=== PATIENT | male | born 1955 | race Caucasian/White ===

== ENCOUNTER 2025-04-25 08:44 | Outpatient (REF) | payer OTHER, SELFPAY ==
--- NOTE | ~2025-04-25 | XR_ITS ---
EXAMINATION: XR LUMBOSACRAL SPINE CLINICAL INFORMATION: LOW BACK PAIN COMPARISON: None available. TECHNIQUE: AP and lateral views FINDINGS: Endplate sclerosis decreased intervertebral disc height and vacuum phenomenon and anterior marginal osteophyte formation at L3-4 and to a lesser extent L5-S1. No acute cortical disruption. Dextroconvex rotoscoliosis apex at L3, mild to moderate. No gross malalignment. No lytic or blastic lesions. Vascular calcifications, aorta and iliac arteries. Multilevel syndesmophyte formation and marginal osteophyte formation and lower thoracic spine. XR/XR lumbar spine 2-3V IMPRESSION: Multilevel spondylosis and dextroconvex rotoscoliosis apex at L3 without acute fracture or gross listhesis. Atherosclerosis disease. Electronically signed by: Liborio Schaefer MD 04/25/2025 09:22 AM EDT
--- OUTSIDE RECORDS SUMMARY | 2025-04-25 08:56 | XMS_ITS | Continuity of Care Document ---
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) MDM MODERATE MUST MEET 2 OUT OF 3 ELEMENTS: PROBLEMS, DATA OR RISK ELEMENT 1: PROBLEMS ADDRESSED 1 OR MORE CHRONIC ILLNESS WITH EXACERBATION OR 2 OR MORE STABLE CHRONIC ILLNESSES OR 1 UNDIAGNOSED NEW PROBLEM OR 1 ACUTE ILLNESS W/SYMPTOMS OR 1 ACUTE COMPLICATED INJURY ELEMENT 2: DATA MUST MEET 1 OF 3 CATEGORIES CATEGORY 1: REVIEW OF PRIOR EXTERNAL NOTES, REVIEW OF RESULTS, ORDERING OF EACH TEST, ASSESSMENT REQUIRING INDEPENDENT HISTORIAN OR CATEGORY 2: INDEPENDENT INTERPRETATION OF TESTS BY ANOTHER PHYSICIAN OR SPECIALIST OR CATEGORY 3: DISCUSSION OF MGT OR TEST INTERPRETATION W/EXTERNAL PHYSICIAN OR SPECIALIST ELEMENT 3: RISK RISK OF COMPLICATIONS AND/OR MORBIDITY OR MORTALITY OF PATIENT MANAGEMENT PROVIDER MUST THOROUGHLY DOCUMENT EACH ELEMENT THAT IS COVERED Not available 04/23/2025 12:29:54 Plan of Treatment Reminders Order Date Submit Date Provider Last Modified By Organization Details Last Modified Time Details Appointments FOLLOW UP 15 2024 12:00P M DR KHANNA Not available Not available Not available Lab PSA, serum or plasma 2024 025 [facility], [facility], [place], [address], 04/24/2025 15:54:46 Referral None recorded. Procedures None recorded. Surgeries None recorded. Imaging XR, lumbosacr al spine, 2 or 3 view 2024 025 [email or web address] [facility], [address] [place] [address], [id number], 04/23/2025 14:06:26 Medication Orders None recorded. Patient TargetsNo targets recorded. Patient Instructions Encounter Date Encounter Id Patient Instructions Last Modified By Organization Details Last Modified Time 04/23/2025 [id number] back care and preventing injuries: care instructions Not available 04/23/2025 12:29:14 getting back to normal after low back pain: care instructions Not available 04/23/2025 12:29:14 learning about relief for back pain Not available 04/23/2025 12:29:14 Reason for Referral None Reported. Problems Name Problem SNOMED Code Status Onset Date Resolution Date Notes Provider Name and Address Organization Details Recorded Time Degenerati on of lumbar interverte bral disc 43862099 Active 2020 Not Available [facility] 3 03:01:14 Chronic hiccup 366861482 Active 2021 Not Available [facility] 3 03:01:14 Steatotic liver disease 826820129 Active 2021 Not Available [facility] 3 03:01:14 Low back pain 127173638 Active 2021 Fran Khanna DO [address] [place] [address], [phone], [facility] 5 12:28:23 Essential hypertensi on 45547588 Active 2017 Not Available [facility] 3 03:01:14 Asthma 958711695 Active 2017 Not Available [facility] 3 03:01:15 Type 2 diabetes mellitus 50525689 Active 2017 Not Available [facility] 3 03:01:14 Eczema 70171885 Active 2017 Not Available [facility] 3 03:01:14 Intermitte nt claudicati on 33189991 Active 2022 Fran Khanna DO [address] [place] [address], [phone], [facility] 3 09:11:50 Calcific coronary arterioscl erosis 34402340 Active 2022 Fran Avila Adrianamic, DO [address] [place] [address], [phone], [facility] 3 17:00:39 Peripheral vascular disease 982581265 Active 2023 Fran Avila Adrianamic DO [address] [place] [address], [phone], [facility] 4 09:15:21 Type 2 diabetes mellitus without complicati on 967541077 Active 2023 Fran Avila Lamont, DO [address] [place] [address], [phone], [facility] 4 09:16:20 Bee sting-siena onofre anaphylaxi s 476989508 Active 2023 Fran Avila Lamont DO [address] [place] [address], [phone], [facility] 4 15:51:12 Cough 00629782 Active 2024 Fran Avila Lamont, DO [address] [place] [address], [phone], [facility] 5 15:15:02 Pneumoniti s 829668712 Active 2024 Fran Avila Lamont DO [address] [place] [address], [phone], [facility] 5 14:39:46 Problem Notes None recorded. Procedures Surgical History Date Name Laterality Status Provider Name and Address Organization Details Recorded Time 03/14/20 24 Colonoscopy completed Fran CastilloEleonora Khanna DO [address] [place] [address], [phone], [facility] 03/14/2024 16:24:12 06/04/20 13 Colonoscopy completed Emily Nicholson [facility] 07/13/2018 10:07:05 Imaging Results None recorded. Procedure Notes None recorded. Medical Equipment None Reported. Allergies Allergen ID Allergen Name Allergen Category Reaction Reaction Severity Criticality Documentation Date Start Date Code Code System Note Provider Name and Address Organization Details Recorded Time 604 clindamyc in Not available Not available Not available Not available 01/03/2018 2582 RxNorm Emily de la torre [place] [facility] 8 10:36:23 Medications Name Sig Start Date Stop Date Status Note LastModified by Organization Details LastModified Time losartan 50 mg tablet take 1 tablet by mouth once a day 07/13 completed Not Available Not Available Not Available prednisone 10 mg tablet PLEASE SEE ATTACHED FOR DETAILED DIRECTION S 02/18 completed Not Available Not Available Not Available doxycycline hyclate 100 mg capsule 03/16 completed Not Available Not Available Not Available atorvastati n 20 mg tablet TAKE 1 TABLET BY MOUTH EVERY DAY active Not Available Not Available No t Available azithromyci n 250 mg tablet TAKE 2 TABLETS BY MOUTH TODAY, THEN TAKE 1 TABLET DAILY FOR 4 DAYS DIRECTED active Not Available Not Available No t Available ofloxacin 0.3 % eye drops 11/08 completed Not Available Not Available Not Available benzonatate 200 mg capsule TAKE 1 CAPSULE BY MOUTH THREE TIMES A DAY NEEDED FOR COUGH FOR 1 WEEK 02/18 completed Not Available Not Available Not Available meloxicam 15 mg tablet TAKE 1 TABLET BY MOUTH EVERY DAY 2024 active Not Available Not Available Not Avai lable valsartan 80 mg tablet TAKE 1 TABLET BY MOUTH EVERY DAY 12/14 completed Not Available Not Available Not Available ciprofloxac in 500 mg tablet TAKE 1 TABLET BY MOUTH EVERY 12 HOURS FOR 7 DAYS active Not Available Not Available No t Available tramadol 50 mg tablet TAKE 1 TABLET BY MOUTH EVERY 4 TO 6 HOURS NEEDED 02/18 completed Not Available Not Available Not Available oxycodone-a cetaminophe n 5 mg-325 mg tablet 07/19 completed Not Available Not Available Not Available amoxicillin 875 mg tablet TAKE 1 TABLET BY MOUTH EVERY 12 HOURS FOR 10 DAYS 02/18 completed Not Available Not Available Not Available baclofen 10 mg tablet TAKE 1 TABLET BY MOUTH TWICE A DAY NEEDED 05/02 completed Not Available Not Available Not Available metformin 1,000 mg tablet TAKE 1 TABLET BY MOUTH TWICE A DAY active Not Available Not Available No t Available glimepiride 4 mg tablet TAKE 1 TABLET BY MOUTH EVERY DAY. NEEDS APPT FOR FURTHER REFILLS. CALL OFFICE active Not Available Not Available No t Available mupirocin 2 % topical ointment APPLY TO AFFECTED AREA TWICE A DAY FOR 7 DAYS 04/26 completed Not Available Not Available Not Available epinephrine 0.3 mg/0.3 mL injection, auto-inject or TAKE 1 AUTO BY INJECTION ROUTE NEEDED FOR 1 DAY. active Not Available Not Available No t Available albuterol sulfate HFA 90 mcg/actuati on aerosol inhaler INHALE 2 PUFFS INTO THE LUNGS EVERY 4 HOURS FOR 30 DAYS active Not Available Not Available No t Available naproxen 500 mg tablet TAKE 1 TABLET BY MOUTH TWICE A DAY NEEDED 11/10 completed Not Available Not Available Not Available oxycodone 5 mg tablet 02/18 completed Not Available Not Available Not Available modafinil 100 mg tablet TAKE 2 TABLETS EVERY DAY BY ORAL ROUTE NEEDED FOR 3 DAYS. active Not Available Not Available No t Available amlodipine 10 mg-benazepr il 20 mg capsule TAKE 1 CAPSULE BY MOUTH EVERY DAY active Not Available Not Available No t Available valsartan 40 mg tablet TAKE 2 TABLETS BY MOUTH EVERY DAY active Not Available Not Available No t Available multivitami n active Not Available Not Available Not Available Jardiance 10 mg tablet TAKE 1 TABLET EVERY DAY BY ORAL ROUTE FOR 30 DAYS. 12/31 completed Not Available Not Available Not Available Jardiance 25 mg tablet Take 1 tablet every day by oral route for 30 days. 12/31 completed Not Available Not Available Not Available Trulicity 1.5 mg/0.5 mL subcutaneou s pen injector INJECT 0.5 ML SUBCUTANE OUSLY EVERY WEEK 2023 active Not Available Not Available Not Avai lable Trulicity 0.75 mg/0.5 mL subcutaneou s pen injector INJECT THE CONTENTS OF 1 SYRINGE (0.5 ML) ONCE WEEKLY 12/31 completed Not Available Not Available Not Available Flucelvax Quad 5164-0326 (PF) 60 mcg (15 mcg x 4)/0.5 mL IM syringe 07/13 completed Not Available Not Available Not Available Flucelvax Quad 1834-1501 (PF) 60 mcg (15 mcg x 4)/0.5 mL IM syringe 10/26 completed Not Available Not Available Not Available Wixela Inhub 250 mcg-50 mcg/dose powder for inhalation TAKE 1 PUFF BY MOUTH TWICE A DAY active Not Available Not Available No t Available Flucelvax Quad (PF) 60 mcg (15 mcg x 4)/0.5 mL IM syringe 11/08 completed Not Available Not Available Not Available Flucelvax Quad (PF) 60 mcg (15 mcg x 4)/0.5 mL IM syringe PHARMACY [facility]MIN[facility] 08/31 completed Not Available Not Available Not Available Trulicity 3 mg/0.5 mL subcutaneou s pen injector INJECT 3 MG EVERY WEEK BY SUBCUTANE OUS ROUTE FOR 30 DAYS. 2023 active Not Available Not Available Not Avai lable Vitals Date Recorded Body weight Body mass index (BMI) Body height Heart rate Oxygen saturation Oxygen saturation in Arterial blood by Pulse oximetry Systolic And Diastolic Provider Name and Address Organization Details Last Updated DateTime 5 422353. 02 g 36.3 kg/m2 180.34 cm 89 /min 98 % 98 % 140/80 mm[Hg] Geetha Malik [facility] 5 12:14:21 Social History Question Answer Notes LastModified by Organizat ion Details LastModified Time Tobacco Smoking Status Former Smoker Not Available [facility] 08/18/2020 03:36:23 What Was The Date Of Your Most Recent Tobacco Screening? 04/23/2025 [email or web address] Information not available 04/23/2025 Sex: Unknown Functional Status Question Answer Note LastModified by Organization D etails LastModified Time Do you or have you ever used any other forms of tobacco or nicotine? No Information not available 08/16/2022 Mental Status None recorded. Family History Nothing Reported. Medical History No medical history recorded. Immunizations Vaccine Type Date Status Note Provider Nam e and Address Organization Details Recorded Time COVID-19 vaccine, vector-nr, rS-ChAdOx1, PF, 0.5 mL 1 completed Krysta de la torre [facility] 08/02/2021 10:27:29 Influenza, split virus, quadrivalent, preservative 8 completed Fran Khanna, DO [address] [place] [address], [place], [address], [facility] 07/21/2018 15:21:40 Influenza, split virus, quadrivalent, preservative 2 completed Fran Khanna DO [address] [facility], [place], [address], [facility] 08/16/2022 16:34:13 zoster live 3 [facility] 11/04/2022 08:51:49 Past Encounters Encounter ID Performer Location Encounter Start Date Encounter Closed Date Diagnosis/Indication Diagnosis SNOMED-CT Code Diagnosis ICD10 Code Diagnosis Note [id number] Fran Khanna DO [facility] [address] [facility],[place] [address] [place] [address] 04/23/2025 12:07:09 04/23/2025 14:06:26 Asthma 776921632 J45.909 currently ok cont his current meds but is not doing his advair bid only qd does start to wheeze if he doesnt take...... Essential hypertension 04733318 I10 bp is much better and stable no issues no change in meds Type 2 lidia betes mellitus 83160380 E11.9 a1c is now down to 6.7 today!!!!! was 6.4 he is really doing well now biking and walkingwe will follow again!!! Depression screening 171 596508 Z13.31 Negative Screening Low back pain 555247578 M54.50 he is wanting to try a once a day nsaid for several weeks at a time then stopwill try meloxicam Health Concerns Section Related Observation LastModified by Organization Detai ls LastModified Time None Recorded Concern Status LastModified by Organization Details LastModified Time None Recorded Payers Encounter Date Sequence Insurance Name Policy Number Policy Rodriguez Covered Member ID Rodriguez Member ID Guarantor Name 04/23/2025 1 [employer] ([employer]) Pablito Hankins [id number] Pablito Hankins Notes Date Note Type Note Provider Name and Address Organization Details Recorded Time 5 text/htm l Care Management - AsthmaReported bypatient.Severity:impro ving; does not interfere with daily activities; does not disturb sleep; does not cause nighttime awakening Associated Symptoms:no fever; no fatigue; no irritability; no cough; normal appetite; no change in productivityCare Management - DiabetesReported bypatient.Self Care:seeing eye doctor yearly for dilated eye exam; checking feet regularly; normal range of home blood sugars (in the low 100s); no side effects from medications Associated Symptoms:symptoms are usually well controlled; no fatigue; no dizziness; no excessive sweating; no headaches; no confusion; no increased thirst; no increased appetite; no increased urination; no blurred vision; no numbness of feet; no calluses on feetCare Management - HypertensionReported bypatient.Self Care:not under emotional stress Severity:symptoms are improving; does not interfere with daily activities Associated Symptoms:no dizziness; no lightheadedness; no chest pain; no shortness of breath; no palpitations; no edema; no calf muscle cramps; no blurred vision; no confusion; no headaches; no fatigue herer for rechk and is doing ok overallrelates his big toes are numb and this is always presentbut has not worsened relates his mid lumbar back has been bothering after walking outside yet on a treadmill he is finesitting prolonged also has discomfort Fran Khanna, DO [address] [facility], [place], [address], [facility] 04/23/2025 12:31:32
== END 2025-04-25 08:45 | disposition home or self-care (01) ==
LOC: HO.XRAY 08:44
PROVIDERS: PCP Internal Medicine; Visit Provider Internal Medicine
DX: M47.816 Spondylosis without myelopathy or radiculopathy, lumbar region (principal); M54.50 Low back pain, unspecified
CPT/HCPCS: 72100

== ENCOUNTER → 2025-04-25 08:51 | Outpatient (BNV) | payer OTHER, SELFPAY | PROVIDERS: PCP Internal Medicine; Visit Provider Radiology Diagnostic Radiology | DX: M47.816 Spondylosis without myelopathy or radiculopathy, lumbar region (principal); M41.86 Other forms of scoliosis, lumbar region; I70.90 Unspecified atherosclerosis | CPT/HCPCS: 72100 ==